=== PATIENT | male | born 1950 | race Caucasian/White ===

== ENCOUNTER 2020-05-02 17:29 | Emergency (ER) | payer OTHER ==
[~2020-05-02] VITALS: Ht 180.3 cm; Wt 95.7 kg
[2020-05-02] MEDS ORDERED: TOPROL XL50 M1 (17:56)
[2020-05-02] MEDS ORDERED: GLUMETZA500 MG (17:57)
[2020-05-02] MEDS ORDERED: ZESTRIL10 M1 (17:57)
[2020-05-02] MEDS ORDERED: SIMVASTATIN5 MG (17:57)
[2020-05-02] MEDS ORDERED: GLIPIZIDE XL5 MG (17:58)
== END 2020-05-02 20:23 | disposition home or self-care (01) ==
LOC: ER 17:29
DX: R07.89 Other chest pain (principal)

== ENCOUNTER 2021-02-06 01:40 | Inpatient (IN) | payer OTHER ==
[~2021-02-06] VITALS: Ht 180.3 cm; Wt 54.4 kg
[~2021-02-06 01:40] MED LIST: GLIPIZIDE XL5 MG; GLUMETZA500 MG; SIMVASTATIN5 MG; TOPROL XL50 M1; ZESTRIL10 M1
[2021-02-06] MEDS ORDERED: CHLORTHALIDONE25 MG (01:47)
--- NOTE | 2021-02-06 01:48 | NUR ---
PACIENTE ALERTA Y ORIENTADO POR BAILEY. REFIERE HBP DESDE LAS 8PM DE HAMIDA Y QUE SE FREDIS LAURENCE MEDICAMENTOS DE LA PRESION.
--- NOTE | 2021-02-06 02:42 | NUR ---
PACIENTE ALERTA Y ORIENTADO X3. MANEJADO POR MIS. CHANDLER QUIEN ORIENTA A PACIENTE SOBRE TX Y PROCEDIMIENTO A REALIZAR Y REFIRIO ENTENDER. SE CONECTO PACIENTE A MONITOR CARDIACO Y OXIMETRIA DE PULSO. SE COLOCA CANULA NASAL A 2L. SE REALIZO MUESTRAS DE LABORATORIO Y CANALIZACION BAJO MEDIDAS ASEPTICAS. CANALIZACION PATENTE Y EVELIO DE EDEMA Y ERITEMA. SE ADMINISTRA MEDICAMENTOS ORDENADOS POR MD. SE MANTIENE BAJO OBSERVACION POR CAMBIOS SIGNIFICATIVOS.
--- NOTE | 2021-02-06 07:43 | NUR ---
SE RECIBE PACIENTE DE TURNO ANTERIOR EN CAMA #2, CON BARANDAS ELEVADAS Y FRENOS AJUSTADOS POR SEGURIDAD. ALERTA Y ORIENTADO EN TIEMPO LUGAR Y PERSONA. RECIBIENDO OXIGENO MEDIANTE CANULA NASAL A 2L. CONECTADO A MONITOR CARDIACO CON UN HR 73BPM, Y OXIMETRIA DE PULSO 97% SAT. PTE ORINA ESPONTANEAMENTE. EVELIO DE DOLOR AL MOMENTO. CON VENOPUNCION PATENTE, EVELIO DE ERITEMA Y EDEMA, RECIBIENDO AL MOMENTO AMIODARONA 360MG/200ML A 33ML/HR MANIPULADO POR MAQUINA DE IV PUMP. SE ORIENTA A PACIENTE SOBRE CUIDADO Y TRATAMIENTO DE ENFERMERIA, EL MISMO VERBALIZA ENTENDER. PENDIENTE CONSULTA CON DR. ALDO MIRANDA. SE MANTIENE PACIENTE EN OBSERVACION POR CAMBIOS EN DAILY CONDICION.
[2021-02-06] MEDS ORDERED: AMLODIPINE BESYL5 MG (13:19)
[2021-02-06] MEDS ORDERED: SIMVASTATIN20 MG (13:19)
[2021-02-06] MEDS ORDERED: GLIPIZIDE5 MG (13:19)
== END 2021-02-08 17:47 | disposition home or self-care (01) | DRG 310 ==
LOC: ER 01:40 → MEDI 10:05
PROVIDERS: ADMIT Internal Medicine; ATTEND Internal Medicine
PROC: 4A12X4Z Monitoring of Cardiac Electrical Activity, External Approach (ICD-10-PCS; principal; 2021-02-06)
PROC: B24BZZZ Ultrasonography of Heart with Aorta (ICD-10-PCS; 2021-02-06)
DX: I49.8 Other specified cardiac arrhythmias (principal); I10 Essential (primary) hypertension; E11.9 Type 2 diabetes mellitus without complications; Z79.4 Long term (current) use of insulin; Z20.822 Contact with and (suspected) exposure to COVID-19